=== PATIENT | female | born 1970 | race Caucasian/White ===

== ENCOUNTER → 2016-12-11 | Outpatient (CLI) | payer BC ==
[~2016-12-11] MED LIST: CETI5TAB PO; FLUO40CA8 PO; MULT-506 PO; SPIR50TA2 PO
--- NOTE | 2016-12-11 09:35 | DIAGNOSTIC IMAGING REPORT ---
CERVICAL WITHOUT CONTRAST CLINICAL HISTORY: 46 years-old Female presenting with neck pain, loss of feeling and strength in the right hand, right-sided neck pain. TECHNIQUE: Multisequence, multiplanar MR imaging of the cervical spine was performed without the use of intravenous contrast. IV contrast: None. COMPARISON: None. FINDINGS: Localizer images: Unremarkable. Straightening of normal cervical lordosis, possibly positional and related to degenerative change. Vertebral bodies maintain normal height, alignment, and bone marrow signal intensity. Intervertebral disc spaces preserved. Small disc osteophyte complexes noted at several levels. In combination with uncovertebral hypertrophy, mild neural foraminal narrowing results on the right at C3-4, on the left at C4-5, and on the right at C6-7. Remaining levels demonstrate patent neuroforamina. The spinal canal is most narrowed at C6-7 and to a lesser degree at C5-6. The cord is mildly contoured at C6-7 along the ventral left aspect. No abnormal spinal cord signal intensity to suggest mild malacia or edema. Spinal cord maintains normal morphology and signal intensity. Craniocervical junction normal. Paraspinal soft tissues within normal limits. IMPRESSION: Multilevel degenerative changes with mild neural foraminal narrowing secondary to disc osteophyte complexes and uncovertebral hypertrophy at several levels as above. Spinal stenosis most severe at C6-7. No convincing evidence of spinal cord impingement. Electronically signed by: Jeuss Rincon M.D. 12/11/2016 9:34 AM Dictated Date/Time: 12/11/2016 8:55 AM
== END | disposition home or self-care (01) ==
LOC: C.MRI 08:08
PROVIDERS: ATTEND Internal Medicine
DX: M54.6 Pain in thoracic spine (principal); M50.31 Other cervical disc degeneration, high cervical region; M48.02 Spinal stenosis, cervical region; M25.78 Osteophyte, vertebrae

== ENCOUNTER → 2017-10-23 | Outpatient (CLI) | payer OTHER ==
--- NOTE | 2017-10-24 06:04 | PAP/PSG TECHNICIAN REPORT ---
[facility] Cassandra Consultant Polysomnogram Report Study name: None Report date: 10/24/2017 Study date: 10/23/2017 Referring Physician: Rodriguez Caldwell M.D. Name: MARISOL STILL Interpreting Physician: Anil Pichardo D.O. Date of : 1970 Cassandra Consultant: Sonia Nielsen, PSGT. Sex: Female Age: 47 StudyType: PSG Weight: 73.3 kgs Height: 47 years, Height 155 cm Neck Circum:13 inches BMI: 30.51 Medications: Fluoxetine 20 mg, Spironolactone 50 mg, Zyrtec - D 10 mg. Patient History 47-year-old female presents [facility] for a baseline sleep study. Patient had a recent failed home sleep study. She states that she has daytime fatigue, falling asleep at meetings and taking afternoon naps often.Ess= 17, Neck = 13 1/4 Parameters Monitored NPSG: E1-M2, E2-M1, Fp1-M2, Fp2-M1, F3-M2, F4-M2, F4-M1, C3-M2, C4-M2, C4-M1, O1-M2, O2-M2, O2-M1, T3-M2, T4-M1, P3-M2, P4-M1, CHIN1, CHIN2, HR, EKG, Legs, PFLOW, SNOR, FLOW, CFLOW, Tidal Volume, THOR, ABDO, SpO2, PLTH, CPRESS, ETCO2 Wave, ETCO2, pH Sleep Architecture Sleep Stages Time at Lights Off 8:41:32 PM STAGES Time (min.) TST (%) Time at Lights On 5:12:32 AM Wake 142.5 -- Total Recording Time (TRT) 508.50 min. N1 7.5 2 Total Sleep Period (TSP) 445.0 min. N2 274.5 75 Total Sleep Time (TST) 366.0min. N3 31.0 8 Awake Time 142.5 min. REM 53.0 14 Wake after Sleep Onset 81.0 min. Sleep Efficiency (SE) 72 % Sleep Onset Latency (TRINA) 64.0 min. Number of Stage 1 Shifts None Awakenings 10 Stage Changes 48 Number of REM periods 2 REM 53.0 14 REM Latency 340.0 min. NREM 313.0 86 Body Position Analysis Supine Right Left Side Prone Vertical Total Sleep Time (min.) 249.2 194.6 0.0 194.59 0.0 13.2 Total Sleep Time (%) 47% 53% 0% 53 0% N/A% Total Sleep Time REM (min.) 0.0 53.0 0.0 None 0.0 0.0 Total Sleep Time NREM (min.) 171.4 141.6 0.0 None 0.0 0.0 Intermittent Wake (min.) 77.8 41.8 9.7 None 0.0 13.2 Total Sleep Period (%) 48% None None None None None Arousals Myoclonus (PLM) * Events Count Index Events Count Index Spontaneous 116 19 Events Awake (PLMW) 4 1.7 Respiratory 30 4.9 Events Asleep w/ Arousal (PLMA) 18 3.0 PLM 17 3 Events Asleep w/o Arousal (PLMS) 267 43.8 Snoring 23 4 Total Asleep 285 46.7 Total 182 30 Total 289 34 Respiratory Analysis * CA OA MA CH H RERA Total Count 0 1 0 0 138 5 139 Index 0.0 0.2 0.0 0 22.6 1 23.6 Mean Duration 0.0 18.5 0.0 0.00 20.8 10.9 20.4 Longest Duration 0.0 18.5 0.0 0.00 0.0 16.1 59.7 Respiratory Event Summary Total Supine ~Supine Right Left Prone REM NREM Apneas Count 1 0 1 1 N/A N/A 0 1 Index 0.2 0 0 0.3 N/A N/A 0 0 Hypopneas (4% Desat) Count 138 54 84 84 N/A N/A 32 106 Index 22.6 18.9 26 25.9 N/A N/A 36.2 20.3 Apneas & All Hypopneas Count 139 54 85 85 N/A N/A 32 107 Index 22.8 19 26 26 N/A N/A 36.2 20.5 Respiratory Events (Head Turbine Operator+All Hyp+RERA) Count 139 54 90 90 N/A N/A 32 107 Index 23.6 19 28 27.8 N/A N/A 38.5 21.1 Respiratory Related Arousal Count 30 54 21 21 N/A N/A 4 26 Index 4.9 3 6 6 N/A N/A 5 5 Snoring Analysis Supine Right Left Prone REM NREM Total Snore duration 24.6 min Snores count 655 502 N/A N/A 58 1,099 1,157 Snore mean duration 1.3 Sec Snores index 229 155 N/A N/A 65.7 210.7 189.7 TST with snoring (%) 6.7% Desaturation Event Summary: Minimum %SpO2 Event Count Mean/Min/Max Duration(sec.) Desaturation Index % Time In Bed > 90 168 23.5 / 6.3 / 56.3 21.2 93.7 86 - 90 8 12.1 / 6.3 / 22.5 15.3 6.2 81 - 85 1 10.8 / 10.8 / 10.8 67.6 0.2 76 - 80 0 N/A 0.0 0.0 71 - 75 0 N/A 0.0 0.0 66 - 70 0 N/A 0.0 0.0 61 - 65 0 N/A 0.0 0.0 56 - 60 0 N/A 0.0 0.0 51 - 55 0 N/A 0.0 0.0 < 50 0 N/A 0.0 0.0 Total REM NREM Awake <50% 0.0 min. 0.0 min. 0.0 min. 0.0 min. 51 - 60% 0.0 min. 0.0 min. 0.0 min. 0.0 min. 61 - 70% 0.0 min. 0.0 min. 0.0 min. 0.0 min. 71 - 80% 0.0 min. 0.0 min. 0.0 min. 0.0 min. 81 - 90% 32.2 min. 8.8 min. 17.5 min. 5.8 min. 91 - 100% 476.0 min. 44.2 min. 295.3 min. 136.5 min. Average 93 92 93 94 Minimum SpO2 82 82 84 89 Desaturation Event Index 20.3 50.9 24.3 0.0 # Desat. Events below 89% 32 12 20 N/A Time(%) with Saturation below 89% 1.0 0.5 0.5 0.0 Time(min.) with Saturation below 89% 4.9 2.4 2.5 0.0 Time (mins) REM (mins) NREM (mins) % of TST SpO2 Below 90% 120 38 N82 3.0 SpO2 Below 88% 10 0 0 1 Heart Rate Analysis Min (bpm) Max (bpm) Average (bpm) Awake 48 93 58 NREM 47 101 57 REM 51 103 67 Overall 47 103 59 Supplemental O2 Values Minimum O2 level: None Value Start Time End Time Cassandra Consultant Comments PSG Study slept in the right, left, and supine positions. No cardiac arrhythmia or PLM's noted. No bruxism noted. Snoring was noted and scored as a 3 on a scale of 1 through 5. (0=no snoring, 5=snoring loud enough to be heard through a closed door or down the [address] way) Ms. Still stated, I did not sleep as well as I do when I am in my own bed. The final report will be interpreted and signed by a sleep physician. The completed physician report will then be placed in the patient medical record. Patient did sleep supine most of the study, moderate snoring and respiratory events were displayed throughout study. Patient wore a mouth guard for grinding. Therapy (cm H2O) 0 TIB (min.) 508.5 TST (min.) 366.0 Sleep Onset (min.) 64.0 REM Onset From Sleep (min.) 340.0 Sleep Efficiency % 72 Wakefulness (%) 28 Wakefulness (min.) 142.5 NREM 1 (%) 2 NREM 1 (min.) 7.5 NREM 2 (%) 75 NREM 2 (min.) 274.5 NREM 3 (%) 8 NREM 3 (min.) 31.0 REM (%) 14 REM (min.) 53.0 # Arousals 182 Arousal Index 30 # Snore 1,157 Snore Index 189.7 AHI 22.8 AHI Supine 19 AHI Non-Supine 26 NREM AHI 20.5 REM AHI 36.2 RDI 23.6 # Obstructive Apnea 1 # Central Apnea 0 # Mixed Apnea 0 # Hypopneas 138 RERAs 5 Total Respiratory Events 149 Time Below SpO2 89% (min.) 4.9 Mean NREM SpO2 (%) 93 Mean REM SpO2 (%) 92 Mean Sleep SpO2 (%) 93 Min NREM SpO2 (%) 84 Min REM SpO2 (%) 82 Position Supine (min.) 249.2 Position Non-supine (min.) 194.6 LM Index Sleep 46.7 LM Index NREM 44.7 LM Index REM 58.9 Mean Heart Rate (bpm) 59 Min Heart Rate (bpm) 47
--- NOTE | 2017-10-28 14:19 | POLYSOMNOGRAPH REPORT ---
CLINICAL DATA: The patient is a 47-year-old female with a chief complaint of snoring and excessive daytime somnolence. She has been falling asleep at meetings and she has sleepiness driving. Her father has obstructive sleep apnea. She had unsuccessfully tried to do a home sleep study. The sensor alarms kept going off and awakening her. She is referred by Dr. Rodriguez Caldwell for an in-lab overnight polysomnography. Her [place] sleepiness scale score is 17. SLEEP ARCHITECTURE: The total sleep period was 445 minutes. The total sleep time was 366 minutes. Sleep efficiency was moderately reduced to 72%. The sleep latency was significantly prolonged to 64 minutes. Wake after sleep onset was increased to 81 minutes. The REM latency was prolonged to 340 minutes. There was only 1 REM period during the night. She does take fluoxetine, which can suppress REM sleep. Sleep consisted of stage N1 2%, stage N2 75%, stage N3 8%, stage REM 14%. AROUSAL DATA: The patient had a total of 186 arousals including 116 spontaneous arousals, 30 respiratory arousals, 17 PLM arousals, 23 snoring arousals. The arousal index was 30. PLM DATA: The patient had 285 periodic limb movements of sleep for a PLM index elevated at 46.7. There were 18 arousals, associated with limb movements for a PLM arousal index of 3.0. EKG: The underlying cardiac rhythm was normal sinus. The cardiac rates ranged from 47-103 beats per minute with an average of 59 beats per minute. No arrhythmias were noted. RESPIRATORY DATA: The patient had a total of 139 respiratory events including 1 obstructive apnea and 138 hypopneas. Hypopneas were scored according to the 4% desaturation rule. The apnea was 18.5 seconds in length. The mean duration of the hypopneas was 20.8 seconds. There were 5 RERAs. The apnea hypopnea index was elevated at 22.8 events per hour. This reflects moderate obstructive sleep apnea. OXIMETRY DATA: The average saturation for the night was 93%. The minimum saturation was 82%. There was only 4.9 minutes with saturations less than 89%. FIELD CONSULTANT COMMENTS: Ms. Putnam slept in the right, left, and supine positions. No cardiac arrhythmia noted. No bruxism noted. Snoring was noted and scored as a 3 on a scale of 1 through 5. The patient indicated she did not sleep as well as she does in her own bed. The patient did wear a mouthguard for grinding during the study. IMPRESSION: 1. Moderate obstructive sleep apnea. 2. Periodic limb movement disorder. COMMENTS: The patient had a very prolonged sleep latency. She had decreased REM sleep. As noted above, she does take fluoxetine, which can suppress REM sleep. She did have a significant amount of events, but she did not qualify for a split study. The patient has significant symptoms as noted above. It is unknown if she has symptoms of restless legs to correlate with the leg movements noted during the study. RECOMMENDATIONS: 1. It is advised that the patient be given a trial of nasal CPAP. The options include an in lab CPAP titration versus treatment with AUTO CPAP. 2. Weight loss is advised in light of the elevation of body mass index at 30.51. 3. The patient should be made aware of the appropriate principles of sleep hygiene including having a regular sleep-wake schedule and allowing approximately 7.5 hours of sleep time per night. 4. If possible, the patient should avoid sleeping supine. 5. Consideration is given to checking a serum ferritin level to see if there may be iron deficiency contributing to the leg movement disorder. Ferritin level less than 50 is usually an indication for treatment with iron supplementation. MTDD
== END ==
LOC: C.NEUR 20:00
PROVIDERS: ATTEND Family Medicine
DX: G47.19 Other hypersomnia (principal); R53.83 Other fatigue; R06.83 Snoring